=== PATIENT | male | born 2000 | race Hispanic/Latino ===

== ENCOUNTER 2025-05-14 17:28 | Emergency (ER) | payer SELFPAY ==
[~2025-05-14] VITALS: Ht 175.3 cm; Wt 81.6 kg
[2025-05-14 18:16] LABS: IMMATURE GRANULOCYTE ABSOLUTE 0.03 K/uL (0-1); NUCLEATED RED BLOOD CELLS 0.0 % (0.0-0.19); PLATELET COUNT (AUTO) 277 K/uL (130-400); RED BLOOD CELL COUNT(AUTO) 5.91 MIL/uL (4.50-6.20); RED CELL DISTRIBUTION WIDTH 12.4 % (11.0-15.5); WHITE BLOOD COUNT (AUTO) 9.4 K/uL (4.8-10.8)
[2025-05-14 18:30] LABS: CREATININE 0.9 mg/dL (0.5-1.3); GLOMERULAR FILTR. RATE CALC 120.0 mL/min (>90); GLUCOSE,RANDOM 97.0 mg/dL (70-105); SODIUM SERUM 139.0 mmol/L (136-145); UREA NITROGEN, BLOOD 12.0 mg/dL (7-18)
[2025-05-14 18:44] LABS: ASPARTATE AMINOTRANSFERASE 34.0 U/L (10-37); TOTAL PROTEIN, SERUM 8.0 g/dL (6.0-8.3)
[2025-05-14] MEDS ORDERED: IOHEXOL 350 MG/ML 100ML INFUS..BTL IV ONE (20:37)
[2025-05-14] MEDS: 0.9%NACL 1000ML 1,000 ML IV STA (21:00)
--- NOTE | 2025-05-14 21:08 | ERN ---
ED Note History of Present Illness Stated Complaint: ABD PAIN, SYNCOPE YESTERDAY Chief Complaint: Abdominal Pain Time Seen by MD: 17:32 Time Seen by Midlevel: 17:40 Dictation: 25-year-old male with no past medical or surgical history coming in complaining of lower abdominal pain. Patient states he has had about one episode of vomiting today. No blood. Denies any fever. Denies any dysuria. Denies any back pain. Allergies: Coded Allergies: No Known Allergies (Unverified Allergy, Unknown, 05/14/25) Past Medical History Past Medical History: Anxiety, Seizure Surgical History: None Review of System Dictation Constitutional: Negative for fever,chills, and weight loss Eyes: Negative for injury, pain,redness, and discharge ENT: Negative for injury,pain or swelling Cardiovascular: Negative for chest pain, palpitations, and edema Respiratory: Negative for shortness of breath, cough, and wheezing, Abdomen/GI: Abdominal pain with nausea and vomiting Back: Negative for injury and pain : Negative for injury, bleeding and discharge MS/Extremity: Negative for injury and deformity Skin: Negative for rash, and discoloration Neuro: Negative for headache, weakness, numbness, tingling, and seizure Psych: Negative for suicide ideation, homicidal ideation, and hallucinations Review of Systems: was completed Initial Vital Sign VS Vital Signs Date Time Temp Pulse Resp B/P (MAP) Pulse Ox O2 Delivery O2 Flow Rate FiO2 05/14/25 17:31 98.8 83 16 147/95 99 Room Air 0 05/14/25 20:21 21 Physical Exam Dictation General: awake, alert, NAD Head/Face: Normocephalic, atraumatic Eyes: PERRL, EOMI, vision at baseline ENT: oral cavity clear, TMs clear, no signs of infection Neck: Trachea midline, supple, no nuchal rigidity Cardiovascular: RRR, normal S1/S2, No MRGs, no JVD Respiratory: CTAB, no respiratory distress, No rales or wheezes Abdomen: Soft, generalized tenderness on palpation, non-distended, normal bowel sounds, no guarding or rebound. Skin: Warm, dry, normal turgor, no rash MS/Extremity: Pulses equal, no cyanosis, neurovascular intact, FROM Neuro: COAx4, GCS 15, strength 5/5, CN 2-12 intact, normal cerebellar exam, normal gait, Psych: Normal behavior, mood, and affect normal Results (Laboratory/Radiology) Laboratory/Radiology Laboratory Tests Test 05/14/25 18:08 05/14/25 22:15 White Blood Count 9.4 K/uL (4.8-10.8) Red Blood Count 5.91 MIL/uL (4.50-6.20) Hemoglobin 17.6 g/dL (14.0-18.0) Hematocrit 49.7 % (42-54) Mean Corpuscular Volume 84.1 fL (79-99) Mean Corpuscular Hemoglobin 29.8 pg (27.0-33.0) Mean Corpuscular Hemoglobin Concent 35.4 g/dL (32.0-36.0) Red Cell Distribution Width 12.4 % (11.0-15.5) Platelet Count 277 K/uL (130-400) Mean Platelet Volume 9.7 fL (7.5-10.5) Immature Granulocyte % (Auto) 0.3 % (0-1) Neutrophils (%) (Auto) 69.4 % (40.0-77.0) Lymphocytes (%) (Auto) 21.7 % (21.0-51.0) Monocytes (%) (Auto) 8.0 % (3.0-13.0) Eosinophils (%) (Auto) 0.2 % (0.0-8.0) Basophils (%) (Auto) 0.4 % (0.0-5.0) Neutrophils # (Auto) 6.5 K/uL (1.8-7.7) Lymphocytes # (Auto) 2.0 K/uL (1.0-4.8) Monocytes # (Auto) 0.8 K/uL (0.1-1.0) Eosinophils # (Auto) 0.02 K/uL (0.00-0.70) Basophils # (Auto) 0.04 K/uL (0.00-0.20) Absolute Immature Granulocyte (auto 0.03 K/uL (0-1) Nucleated Red Blood Cells 0.0 % (0.0-0.19) Sodium Level 139 mmol/L (136-145) Potassium Level 3.5 mmol/L (3.5-5.1) Chloride Level 100 mmol/L (101-111) L Carbon Dioxide Level 29 mmol/L (21-32) Blood Urea Nitrogen 12 mg/dL (7-18) Creatinine 0.9 mg/dL (0.5-1.3) Glomerular Filtration Rate Calc 120 mL/min (>90) Random Glucose 97 mg/dL (70-105) Total Calcium 9.5 mg/dL (8.5-10.1) Total Bilirubin 0.9 mg/dL (0.2-1.0) Direct Bilirubin 0.2 mg/dL (0.0-0.3) Aspartate Amino Transf (AST/SGOT) 34 U/L (10-37) Alanine Aminotransferase (ALT/SGPT) 88 U/L (12-78) H Alkaline Phosphatase 121 U/L (50-136) Total Protein 8.0 g/dL (6.0-8.3) Albumin 4.8 g/dL (3.5-5.0) Lipase 14 U/L (16-77) L Urine Color LIGHT-YELLOW (YELLOW) Urine Appearance CLEAR (CLEAR) Urine pH 6.0 (5.0-8.0) Urine Specific [place] >1.050 (1.001-1.031) Urine Protein 30 mg/dL (NEGATIVE) H Urine Glucose (UA) NEGATIVE mg/dL (NEGATIVE) Urine Ketones 150 mg/dL (NEGATIVE) H Urine Occult Blood NEGATIVE (NEGATIVE) Urine Nitrate NEGATIVE (NEGATIVE) Urine Bilirubin NEGATIVE mg/dL (NEGATIVE) Urine Urobilinogen 0.2 mg/dL (0.2-1.0) Urine Leukocyte Esterase NEGATIVE [place]/uL Urine RBC 0-1 /HPF (0-1) Urine WBC 0-1 /HPF (0-1) Urine Bacteria None /HPF (None Seen) Urine Opiates Screen NEGATIVE (NEGATIVE) Urine Barbiturates Screen NEGATIVE (NEGATIVE) Urine Phencyclidine Screen NEGATIVE (NEGATIVE) Urine Amphetamines Screen NEGATIVE (NEGATIVE) Urine Benzodiazepines Screen POSITIVE (NEGATIVE) H Urine Cocaine Screen NEGATIVE (NEGATIVE) Urine Marijuana (THC) Screen POSITIVE (NEGATIVE) H Labs Reviewed?: Yes ED Course ED Course Orders Procedure Category Date Status Time Cbc With Differential LAB 05/14/25 Complete 17:37 Basic Metabolic Panel LAB 05/14/25 Complete 17:37 Drug Screen Urine LAB 05/14/25 Complete 17:37 Ct Abdomen/Pelvis CT 05/14/25 Resulted W/Contrast 17:37 Lipase LAB 05/14/25 Complete 17:37 Hepatic Function Panel LAB 05/14/25 Complete 17:37 0.9%Nacl 1000ml (Ns PHA 05/14/25 Complete 1000ml) 20:20 Ondansetron 4mg Inj PHA 05/14/25 Complete (Zofran 4mg Inj) 20:20 Ketorolac PHA 05/14/25 Complete Tromethamine 15mg/Ml 20:20 Iohexol (Omnipaque) PHA 05/14/25 Complete 20:37 Urinalysis LAB 05/14/25 Complete W/Microscopic 22:15 Ketorolac PHA 05/15/25 In Process Tromethamine 15mg/Ml 00:00 Current Medications Medications (Trade) Dose Ordered Sig/Rihca Route PRN Reason Start Time Stop Time Status Last Admin Dose Admin Iohexol (Omnipaque) 35,000 mg STK-MED ONCE IV 05/14/25 20:37 05/14/25 20:38 DC Ketorolac Tromethamine (toRADol) 15 mg ONCE ONCE IV 05/15/25 00:00 05/15/25 00:01 Ketorolac Tromethamine (toRADol) 15 mg ONCE STAT IV 05/14/25 20:20 05/14/25 20:23 DC 05/14/25 21:00 Ondansetron HCl (zoFRAN 4MG INJ) 4 mg ONCE STAT IVP 05/14/25 20:20 05/14/25 20:23 DC 05/14/25 21:00 Sodium Chloride 1,000 ml @ 1,000 mls/hr Q1H STAT IV 05/14/25 20:20 05/14/25 21:19 DC 05/14/25 21:00 Vital Signs Date Time Temp Pulse Resp B/P (MAP) Pulse Ox O2 Delivery O2 Flow Rate FiO2 05/14/25 20:21 98.8 83 16 147/95 99 Room Air* 0 21 05/14/25 17:31 98.8 83 16 147/95 99 Room Air 0 Medical Decision Making MDM 25-year-old male with no past medical or surgical history coming in complaining of lower abdominal pain. Patient states he has had about one episode of vomiting today. No blood. Denies any fever. Denies any dysuria. Denies any back pain. CBC showed no leukocytosis, no anemia, chemistry showed mild hypochloremia, normal renal function urinalysis positive for marijuana and benzodiazepines. CT abdomen showed no acute process of the abdomen and pelvis. Small fat containing umbilical hernia without any obstruction. Normal appendix. Patient will be discharged to follow up with PCP. Differential diagnosis: Appendicitis, gastroenteritis, bowel obstruction, electrolyte imbalance Need for hospitalization: Patient does not meet criteria for hospitalization. There are no social concerns with this patient. DX & DISP Disposition: Discharge Departure Impression: Primary Impression: Abdominal pain Additional Impressions: Umbilical hernia, Marijuana abuse, Drug abuse Condition: Stable Scripts Lactulose (Lactulose) 10 Gram/15 Ml Solution 30 ML PO BID for constipation, #500 ML 0 Refills Prov: ITA PARRY 05/14/25 Ketorolac Tromethamine (Toradol) 10 Mg Tab 1 TAB PO Q6HPRN PRN for pain for 5 Days, #20 TAB 0 Refills Prov: ITA PARRY 05/14/25 Additional Instructions: Your labs were unremarkable. Your CT showed a small umbilical hernia please follow up with your primary doctor in 1-2 days. If anything worsens please return to ER. FOLLOW-UP WITH PRIMARY CARE PROVIDER IN 1 TO 2 DAYS. TAKE MEDICATIONS DIRECTED HERE IN THE EMERGENCY ROOM. OKAY TO CONTINUE HOME MEDICATIONS UNLESS OTHERWISE DISCUSSED DURING YOUR VISIT IN THE EMERGENCY ROOM TODAY. RETURN TO YOUR NEAREST EMERGENCY ROOM IF SYMPTOMS WORSEN OR IF THERE IS NO IMPROVEMENT. CALL 911 IF YOU NEED IMMEDIATE ASSISTANCE. TAKE TYLENOL BTYD-LPS-TARECYS NEEDED AND IF NO CONTRAINDICATIONS ARE PRESENT. INCREASE ORAL HYDRATION. A WOUND CULTURE OR URINE CULTURE WAS ORDERED HERE IN THE EMERGENCY ROOM DEPARTMENT PLEASE FOLLOW-UP WITH PRIMARY CARE PROVIDER AND ADVISE THEM TO GET REPEAT PORTS FROM OUR FACILITY. IF YOU HAD ANY [place]ILEY WRAP/SPLINTS THAT WERE APPLIED HERE, PLEASE DO NOT REMOVE THEM UNTIL YOU SEE YOUR PRIMARY CARE OR SPECIALTY. Referrals: SELF,REFERRAL (PCP) Time of Disposition: 23:53 I have reviewed the case, and I agree with, Diagnosis and Plan EMILY ANTONIO NP May 14, 2025 21:08 ITA PARRY May 14, 2025 23:46
[2025-05-14 22:57] LABS: AMPHET/METH SCREEN,URINE NEGATIVE (NEGATIVE); BARBITURATE SCREEN, URINE NEGATIVE (NEGATIVE); CANNABINOID SCREEN,URINE POSITIVE (NEGATIVE); COCAINE SCREEN,URINE NEGATIVE (NEGATIVE)
[2025-05-14 23:07] LABS: APPEARANCE,URINE CLEAR (CLEAR); GLUCOSE, URINE (UA) NEGATIVE (NEGATIVE); LEUKOCYTE ESTERASE ,URINE NEGATIVE Leu/uL (NEGATIVE); NITRATE,URINE NEGATIVE (NEGATIVE); OCCULT BLOOD,URINE NEGATIVE (NEGATIVE)
--- NOTE | 2025-05-14 23:40 | HMCIMG ---
EXAM: CT Abdomen and Pelvis with IV contrast. CLINICAL HISTORY: Lower abdominal pain. TECHNIQUE: Post-contrast thin collimated axial CT images of the abdomen and pelvis were obtained, with sagittal and coronal reformatted images also submitted. A CT scan is done according to ALARA (As Low As Reasonably Achievable). COMPARISON: None. FINDINGS: Unremarkable visualized lung parenchyma. No focal abnormality within the gallbladder, pancreas, spleen, or adrenal glands. Mild fatty liver. Small 5 mm cyst in the left kidney interpolar region and 4 mm cyst in the right kidney interpolar region. No obvious septations or calcification within. Type I Bosniak cysts. No follow-up is indicated. Small omental fat containing umbilical hernia. There is no obvious bowel wall thickening. Bowel loops are normal in caliber without evidence of obstruction or ileus. The appendix is normal. There is no abnormality within the urinary bladder. Unremarkable reproductive organs. Abdominal and pelvic vessels are patent. No lymphadenopathy. No free fluid. There is no acute osseous abnormality. IMPRESSIONS: No acute process in the abdomen or pelvis. Small omental fat containing umbilical hernia. Mild fatty infiltration of the liver. Tiny subcentimeter bilateral renal cortical cysts. No follow-up is indicated. /Sabine
[2025-05-14] MEDS ORDERED: LACT-441 PO (23:54)
[2025-05-14] MEDS ORDERED: KETO10 PO (23:54)
[2025-05-15 00:11] VITALS: BP 136/88; PULSE 78; RESP 16; TEMP 98.2; O2SAT 100
== END 2025-05-15 00:12 | disposition home or self-care (01) ==
LOC: EDH 17:28
DX: R10.30 Lower abdominal pain, unspecified (principal); K42.9 Umbilical hernia without obstruction or gangrene; F12.10 Cannabis abuse, uncomplicated; F41.9 Anxiety disorder, unspecified
CPT/HCPCS: 99285; 74177; 96374; 96375; 80076; 80048; 80305; 83690; 85025; 36415; 96376; 81001; J1885 ×2; J7030; J2405; Q9967